=== PATIENT | male | born 1965 | race Caucasian/White ===

== ENCOUNTER 2018-09-02 10:39 | Emergency (ER) | payer OTHER, MEDICAID, SELFPAY ==
[2018-09-02 10:45] VITALS: BP 171/119; PULSE 83; RESP 16; TEMP 36.7; O2SAT 100; BMI 23.0
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
[2018-09-02 11:11] VITALS: PULSE 81
[2018-09-02 12:04] VITALS: BP 160/100; PULSE 57; RESP 19; O2SAT 100
== END 2018-09-02 12:10 | disposition home or self-care (01) ==
PROVIDERS: Emergency Provider Emergency Medicine; Family Provider Family Medicine; PCP Family Medicine
DX: M25.511 Pain in right shoulder (principal)
CPT/HCPCS: 73030; 99282; 99283

== ENCOUNTER → 2018-09-10 05:57 | Outpatient (CLI) | payer OTHER, MEDICAID, SELFPAY ==
--- NOTE | 2018-09-10 | DI.RAD.S_ITS ---
PROCEDURE: XR EYE FOREIGN BODY LT INDICATIONS: MRI SCREENING TECHNIQUE: A single view of the orbits was acquired. COMPARISON: None. FINDINGS: Soft tissues: No metallic foreign bodies are visualized around the orbits. Bones: Bony structures appear unremarkable. Visualized sinuses appear clear. IMPRESSION: No radiopaque foreign body identified Dictated by: Dennis De Luna M.D. on 09/10/2018 at 13:27 Approved by: Dennis De Luna M.D. on 09/10/2018 at 13:27
--- NOTE | 2018-09-10 | DI.MRI.S_ITS ---
PROCEDURE: MR LUMBAR SPINE WO CON INDICATIONS: Intervertebral disc disorders with radiculopathy TECHNIQUE: Noncontrast sagittal T1 spin echo and T2 fast echo, sagittal STIR, axial T1 and T2 fast spin echo through the lumbar spine. In cases with scoliosis, additional coronal T2 fast spin echo may be performed. COMPARISON: [facility], SPINE LUMB MIN 4VW, 05/04/2014, 15:11. [facility], MR, L-SPINE WITHOUT CONTRAST, 12/06/2011, 15:14. [facility], MR, L-SPINE WITHOUT CONTRAST, 05/13/2014, 14:46. FINDINGS: Image quality: Excellent. Alignment and Curvature: There is normal bony alignment. Bone Marrow: Degenerative endplate signal changes are present. There is a large Schmorl's node in the inferior endplate of L4. No acute vertebral body compression fractures. Spinal Cord: Conus medullaris terminates at the T12-L1 level. Visualized cord demonstrates normal signal and size. Paraspinous Soft Tissues: No paravertebral masses. There is a large simple perine right renal cyst. T12-L1: Mild loss of disc height. Moderate disc desiccation. There is mild posterior disc bulge. No central canal or foraminal stenosis. No definitive nerve root impingement. No significant change from the last exam. L1-L2: Mild loss of disc height. Moderate disc desiccation. There is mild posterior disc bulge. No central canal or foraminal stenosis. No definitive nerve root impingement. No significant change from the last exam. L2-L3: Mild loss of disc height. Moderate disc desiccation. There is mild posterior disc bulge. No central canal stenosis. Mild bilateral foraminal stenosis. No definitive nerve root impingement. No significant change from the last exam. L3-L4: Preserved disc height. Moderate disc desiccation. There is mild posterior disc bulge. No central canal stenosis. Mild bilateral foraminal stenosis. No definitive nerve root impingement. No significant change from the last exam. L4-L5: Mild loss of disc height. Moderate disc desiccation. There is diffuse posterior disc bulge. Mild bilateral facet arthropathy. Mild central canal stenosis. Moderate bilateral foraminal stenosis. No definitive nerve root impingement. No significant change from the last exam. L5-S1: Severe loss of disc height. Moderate disc desiccation. There is diffuse posterior disc bulge. Mild bilateral facet arthropathy. Mild central canal stenosis. Moderate left and mild foraminal stenosis. No definitive nerve root impingement. No significant change from the last exam. IMPRESSION: 1. Multilevel degenerative disc disease and facet arthropathy as described. 2. Mild central canal stenosis at L4-L5 and L5-S1. 3. Multilevel foraminal stenosis as described. 4. There is a large simple appearing right renal cyst. Dictated by: Cassy Aguero M.D. on 09/10/2018 at 15:01 Approved by: Cassy Aguero M.D. on 09/11/2018 at 10:09
== END ==
PROVIDERS: Family Provider Family Medicine; PCP Family Medicine; Visit Provider Family Medicine
DX: M51.16 Intervertebral disc disorders with radiculopathy, lumbar region (principal); M51.17 Intervertebral disc disorders with radiculopathy, lumbosacral region; M51.46 Schmorl's nodes, lumbar region; M47.26 Other spondylosis with radiculopathy, lumbar region; M47.27 Other spondylosis with radiculopathy, lumbosacral region; M48.061 Spinal stenosis, lumbar region without neurogenic claudication; M48.07 Spinal stenosis, lumbosacral region; N28.1 Cyst of kidney, acquired; Z13.5 Encounter for screening for eye and ear disorders
CPT/HCPCS: 70030; 72148

== ENCOUNTER 2018-09-16 06:20 | Emergency (ER) | payer OTHER, MEDICAID, SELFPAY ==
[2018-09-16] VITALS (7 sets, daily range): BP systolic 122–160; BP diastolic 67–111; PULSE 69–115; RESP 12–22; TEMP 36.9; O2SAT 99–100; BMI 24.8
--- NOTE | 2018-09-16 06:35 | DI.RAD.S_ITS ---
PROCEDURE: XR CHEST 1V INDICATIONS: Shortness of breath TECHNIQUE: One view of the chest was acquired. COMPARISON: [facility], CHEST 2 VIEW, 02/22/2016, 13:27. [facility], CHEST 1 VIEW, 05/26/2013, 17:59. FINDINGS: Surgical changes and devices: None. Lungs and pleura: Lungs are clear. No pleural effusions or pneumothorax. Mediastinum: Mediastinal contours appear normal. Heart size is normal. Bones and chest wall: No suspicious bony lesions. Overlying soft tissues appear unremarkable. IMPRESSION: Normal for age, source of current shortness of breath symptoms is not seen. Dictated by: Eduard Navarro M.D. on 09/16/2018 at 8:22 Approved by: Eduard Navarro M.D. on 09/16/2018 at 8:28
[2018-09-16 06:53] LABS: Add Manual Diff / Slide Review NO; Basophils Absolute Auto 0 /uL (0-100); Basophils Percent Auto 1.1 % (0-2); Eosinophils Absolute Auto 300 /uL (0-450); Hematocrit 44.7 % (41-53); Hemoglobin 15.4 g/dL (13.5-17.5); Lymphocytes Absolute Auto 1200 /uL (1100-4500); Lymphocytes Percent Auto 27.8 % (25-40); Mean Corpuscular HGB Conc 34.5 % (30-36); Mean Corpuscular Hemoglobin 29.6 PG (26-34); Mean Corpuscular Volume 85.7 fL (80-100); Monocytes Absolute Auto 600 /uL (0-900); Monocytes Percent Auto 13.5 % (3-14); Neutrophils Absolute Auto 2100 /uL (1500-7000); Neutrophils Percent Auto 49.6 % (50-75); Platelet Count 258 X10^3/uL (150-400); Red Blood Cell Count 5.21 X10^6/uL (4.5-5.9); Red Cell Distribution Width 14.4 % (11.6-14.8); White Blood Cell Count 4.3 X10^3/uL (4.5-11.0)
--- NOTE | 2018-09-16 06:55 | ED.SOB ---
HPI - SOB/Dyspnea <DO John Grover Last Filed: 09/16/18 18:44> General Chief Complaint: Shortness of Breath/Dyspnea Stated Complaint: coughing, cant get any air, sweating Time Seen by Provider: 09/16/18 06:27 Source: patient Mode of arrival: ambulatory Limitations: no limitations History of Present Illness 53-year-old male here for evaluation of right upper chest pain and shortness of breath. The symptoms been going on for the past several days. He also states he has had a lot of ?life stressors ?recently. He states that he has had fevers and body aches. No rashes. States he has had pneumonia in the past and it is always on his right upper lungs who is concerned about that. Related Data Home Medications Medication Instructions Recorded Confirmed [ROBITUSSIN] #0 02/22/16 acetaminophen 650 mg PO #0 02/22/16 Previous Rx's Medication Instructions Recorded baclofen 0 PO SEE INSTRUCTIONS PRN #90 tab 01/03/16 ondansetron [Zofran ODT] 4 mg SUBLINGUAL Q6HP PRN #10 odt 02/22/16 tramadol 0 mg PO SEE INSTRUCTIONS PRN #89 07/19/16 tab albuterol sulfate 2 puff INHALATION Q4-6H PRN #6.7 09/16/18 gram prednisone 50 mg PO DAILY #5 tab 09/16/18 Allergies Allergy/AdvReac Type Severity Reaction Status Date / Time No Known Drug Allergies Allergy Verified 09/02/18 10:45 Review of Systems <DO John Grover Last Filed: 09/16/18 18:44> Constitutional Denies fever(s) and Denies headache(s) ENT Ears, Nose, Mouth, and Throat: Denies headache(s) Cardiovascular Reports chest pain and Reports dyspnea Respiratory Reports cough, Reports pain on inspiration and Reports dyspnea Gastrointestinal Gastrointestinal: Denies abdominal pain, Denies nausea and Denies vomiting Genitourinary Denies dysuria Musculoskeletal Denies myalgias and Denies arthralgias Integumentary/Breasts Denies rash Neurologic Denies behavioral changes and Denies headache(s) Psychiatric Denies behavioral changes Hematologic/Lymphatic Denies easy bleeding and Denies easy bruising PFSH <DO John Grover Last Filed: 09/16/18 18:44> Medical History Asthma (Acute) 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) Family History (Updated 09/02/18 @ 11:14 by Susan White DO) Father Diabetes mellitus Social History Smoking Status: Former smoker alcohol intake: current substance use type: former substance user and amphetamines Social History Smoking Status: Former smoker alcohol intake: current substance use type: former substance user and amphetamines Exam <DO John Grover Last Filed: 09/16/18 18:44> Initial Vital Signs Initial Vital Signs: Vital Signs Pulse Rate 69 09/16/18 06:26 Respiratory Rate 22 09/16/18 06:26 Blood Pressure 149/101 H 09/16/18 06:26 Pulse Oximetry 100 09/16/18 06:26 Const General: cooperative, well developed, well groomed and No acute distress Orientation: alert, awake and oriented x3 HENMT Head: normal to inspection and normocephalic Resp Effort & Inspection: normal respiratory effort, not labored and tachypneic Auscultation: wheezes Cardio Rate: regular rate Rhythm: regular rhythm Pulses: radial pulses present GI Inspection: non-distended Palpation: soft, No firm and No tender Skin Lesions: no lesions Rashes: no rashes Neuro General: alert, awake and oriented x3 Cognition: normal cognition Speech: speech normal Gait: normal gait Extrem General: normal to inspection and capillary refill normal Psych Appearance: grossly normal and well kempt <Susan White DO - Last Filed: 09/16/18 18:43> Initial Vital Signs Initial Vital Signs: Vital Signs Pulse Rate 69 09/16/18 06:26 Respiratory Rate 22 09/16/18 06:26 Blood Pressure 149/101 H 09/16/18 06:26 Pulse Oximetry 100 09/16/18 06:26 Course <DO John Grover Last Filed: 09/16/18 18:44> Orders Ordered: Discontinued Medications Albuterol (Ventolin) 2.5 mg INH NOW ONE Stop: 09/16/18 07:58 Last Admin: 09/16/18 08:03 Dose: 2.5 mg Albuterol/Ipratropium (Duoneb) 3 ml INH NOW ONE Stop: 09/16/18 06:35 Last Admin: 09/16/18 07:10 Dose: 3 ml Methylprednisolone (Solu-Medrol 125 Mg Vial) 125 mg IV NOW ONE Stop: 09/16/18 07:58 Last Admin: 09/16/18 08:03 Dose: 125 mg Vital Signs - 8 hr 09/16/18 06:26 09/16/18 06:33 09/16/18 07:00 Temperature 98.4 F Pulse Rate 69 69 100 H Respiratory Rate 22 22 22 Blood Pressure 160/111 H Blood Pressure [Right Arm] 149/101 H 125/79 Pulse Oximetry 100 100 100 09/16/18 07:10 09/16/18 07:30 09/16/18 08:00 Temperature Pulse Rate 73 106 H 77 Respiratory Rate 12 20 18 Blood Pressure Blood Pressure [Right Arm] 136/73 122/67 Pulse Oximetry 99 100 100 09/16/18 08:09 Temperature Pulse Rate 115 H Respiratory Rate 19 Blood Pressure Blood Pressure [Right Arm] 122/70 Pulse Oximetry 100 <Susan White, - Last Filed: 09/16/18 18:43> Orders Ordered: Discontinued Medications Albuterol (Ventolin) 2.5 mg INH NOW ONE Stop: 09/16/18 07:58 Last Admin: 09/16/18 08:03 Dose: 2.5 mg Albuterol/Ipratropium (Duoneb) 3 ml INH NOW ONE Stop: 09/16/18 06:35 Last Admin: 09/16/18 07:10 Dose: 3 ml Methylprednisolone (Solu-Medrol 125 Mg Vial) 125 mg IV NOW ONE Stop: 09/16/18 07:58 Last Admin: 09/16/18 08:03 Dose: 125 mg Vital Signs - 8 hr 09/16/18 06:26 09/16/18 06:33 09/16/18 07:00 Temperature 98.4 F Pulse Rate 69 69 100 H Respiratory Rate 22 22 22 Blood Pressure 160/111 H Blood Pressure [Right Arm] 149/101 H 125/79 Pulse Oximetry 100 100 100 09/16/18 07:10 09/16/18 07:30 09/16/18 08:00 Temperature Pulse Rate 73 106 H 77 Respiratory Rate 12 20 18 Blood Pressure Blood Pressure [Right Arm] 136/73 122/67 Pulse Oximetry 99 100 100 09/16/18 08:09 Temperature Pulse Rate 115 H Respiratory Rate 19 Blood Pressure Blood Pressure [Right Arm] 122/70 Pulse Oximetry 100 MDM - SOB/Dyspnea <German RothDO - Last Filed: 09/16/18 18:44> Lab Data Result diagrams: 09/16/18 06:43 09/16/18 06:43 Lab Results 09/16/18 09/16/18 Range/Units 06:43 06:43 WBC 4.3 L (4.5-11.0) X10^3/uL RBC 5.21 (4.5-5.9) X10^6/uL Hgb 15.4 (13.5-17.5) g/dL Hct 44.7 (41-53) % MCV 85.7 (80-100) fL MCH 29.6 (26-34) PG MCHC 34.5 (30-36) % RDW 14.4 (11.6-14.8) % Plt Count 258 (150-400) X10^3/uL Neut % (Auto) 49.6 L (50-75) % Lymph % (Auto) 27.8 (25-40) % [place] % (Auto) 13.5 (3-14) % Eos % (Auto) 8.0 H (2-4) % Baso % (Auto) 1.1 (0-2) % Neut # (Auto) 2100 (8774-5362) /uL Lymph # (Auto) 1200 (4865-0739) /uL [place] # (Auto) 600 (0-900) /uL Eos # (Auto) 300 (0-450) /uL Baso # (Auto) 0 (0-100) /uL Sodium 143 (137-145) mmol/L Potassium 3.8 (3.4-5.1) mmol/L Chloride 106 (98-107) mmol/L Carbon Dioxide 26 (22-32) mmol/L BUN 17 (9-20) mg/dL Creatinine 1.20 (0.66-1.25) mg/dL Estimated GFR > 60.0 (>60) mL/min BUN/Creatinine Ratio 14.2 (6-22) Glucose 98 (70-100) mg/dL Calcium 9.3 (8.4-10.2) mg/dL Total Bilirubin 0.5 (0.2-1.3) mg/dL AST 35 (17-59) IU/L ALT 23 (21-72) IU/L Alkaline Phosphatase 106 (38-126) U/L Troponin I < 0.012 (0.01-0.034) ng/mL B-Natriuretic Peptide < 100 (<100) Total Protein 8.2 (6.3-8.2) g/dL Albumin 4.6 (3.5-5.0) g/dL Globulin 3.6 (1.7-4.1) g/dL Albumin/Globulin Ratio 1.3 (1.0-2.8) Lipase 49 (23-300) U/L ECG Data Attestation: I personally reviewed and interpreted this ECG as follows: Prior ECG tracings: not available for review Interpretation: Sinus rhythm Ventricular rate 66 side normal axis Normal QRS Normal QTC No ST T wave changes MDM Narrative Medical decision making narrative: Patient has had symptoms for the past several days. Was given a nebulizer treatment for wheezing. Lab test pending. Care turned over today provided follow up on labs and disposition. <Susan White, DO - Last Filed: 09/16/18 18:43> Lab Data Attestation: I reviewed the patient's lab results. Lab Results 09/16/18 09/16/18 Range/Units 06:43 06:43 WBC 4.3 L (4.5-11.0) X10^3/uL RBC 5.21 (4.5-5.9) X10^6/uL Hgb 15.4 (13.5-17.5) g/dL Hct 44.7 (41-53) % MCV 85.7 (80-100) fL MCH 29.6 (26-34) PG MCHC 34.5 (30-36) % RDW 14.4 (11.6-14.8) % Plt Count 258 (150-400) X10^3/uL Neut % (Auto) 49.6 L (50-75) % Lymph % (Auto) 27.8 (25-40) % [place] % (Auto) 13.5 (3-14) % Eos % (Auto) 8.0 H (2-4) % Baso % (Auto) 1.1 (0-2) % Neut # (Auto) 2100 (7827-3789) /uL Lymph # (Auto) 1200 (0654-0116) /uL [place] # (Auto) 600 (0-900) /uL Eos # (Auto) 300 (0-450) /uL Baso # (Auto) 0 (0-100) /uL Sodium 143 (137-145) mmol/L Potassium 3.8 (3.4-5.1) mmol/L Chloride 106 (98-107) mmol/L Carbon Dioxide 26 (22-32) mmol/L BUN 17 (9-20) mg/dL Creatinine 1.20 (0.66-1.25) mg/dL Estimated GFR > 60.0 (>60) mL/min BUN/Creatinine Ratio 14.2 (6-22) Glucose 98 (70-100) mg/dL Calcium 9.3 (8.4-10.2) mg/dL Total Bilirubin 0.5 (0.2-1.3) mg/dL AST 35 (17-59) IU/L ALT 23 (21-72) IU/L Alkaline Phosphatase 106 (38-126) U/L Troponin I < 0.012 (0.01-0.034) ng/mL B-Natriuretic Peptide < 100 (<100) Total Protein 8.2 (6.3-8.2) g/dL Albumin 4.6 (3.5-5.0) g/dL Globulin 3.6 (1.7-4.1) g/dL Albumin/Globulin Ratio 1.3 (1.0-2.8) Lipase 49 (23-300) U/L Imaging Data Chest x-ray: Radiologist's impression: [address] [address] XRay Report Signed Patient: Fredi Dill [facility]#: [id number] : 1965Acct:[id number] Age/Sex: 53 / MDate of Service: 09/16/18 Loc: ED Accession Number: [id number] Procedure: XR chest 1V Ordering Provider: German Roth D.O. PROCEDURE: XR CHEST 1V INDICATIONS: Shortness of breath TECHNIQUE: One view of the chest was acquired. COMPARISON: [facility], , CHEST 2 VIEW, 02/22/2016, 13:27. [facility], CR, CHEST 1 VIEW, 05/26/2013, 17:59. FINDINGS: Surgical changes and devices: None. Lungs and pleura: Lungs are clear. No pleural effusions or pneumothorax. Mediastinum: Mediastinal contours appear normal. Heart size is normal. Bones and chest wall: No suspicious bony lesions. Overlying soft tissues appear unremarkable. IMPRESSION: Normal for age, source of current shortness of breath symptoms is not seen. Dictated by: Eduard Navarro M.D. on 09/16/2018 at 8:22 Approved by: Eduard Navarro M.D. on 09/16/2018 at 8:28 ECG Data Attestation: I personally reviewed and interpreted this ECG as follows: Prior ECG tracings: available for review Interpretation: Sinus rhythm with a rate of 66 P are 178 QRS of 96 QTC of 416, no ST elevation or depression is appreciated. Patient has prior from 05/26/2013 which appears similar. MDM Narrative Medical decision making narrative: Patient on recheck wheezing has resolved. Lungs are clear patient appears in no acute distress. He states he feels much better he did request a 2nd neb, which was given here in the department and he states that was helpful. Patient chest x-ray is negative, lab work shows a slightly low white count but otherwise normal labs. He has had 3 days of chest pain and that is been constant so likelihood of a cardiac event causing his symptoms with a negative troponin and EKG are unlikely. He does have a history of smoking tobacco and quit about 10 years ago, he does continue to smoke marijuana and this likely makes his lungs a little bit more sensitive. Patient is currently on penicillin for a dental infection. He has albuterol in the past but does not know if he still has his inhaler. Discussed with a spacer training as lungs albuterol as he is not familiar with spacers. Plan for a steroid burst dose. He can continue his medications as prescribed as he is not having any other changes that are concerning for an allergic reaction. Patient is comfortable with the plan feels much better and requesting return home. Discharge Plan Departure Patient Disposition: Home Clinical Impression: Bronchitis Discharge Date/Time: 09/16/18 09:14 Interventions: ED Discharge Assessment Last Done: 09/16/18 09:16 Instructions: DI for Acute Bronchitis Activity Restrictions/Additional Instructions: Follow-up with primary care in the next week if your symptoms have not resolved. Continue oral antibiotics as prescribed. Use albuterol 1-2 puffs every 4 hours as needed for wheezing or shortness of breath. Use this with a spacer. Take prednisone once daily until gone. Return to the emergency department for fevers, rapidly worsening symptoms, new chest pain, worsening shortness of breath or difficulty breathing, lightheadedness, passing out, persistent vomiting new or concerning symptoms. Prescriptions: New prednisone 50 mg tablet 50 mg PO DAILY Qty: 5 RF: 0 albuterol sulfate 90 mcg/actuation HFA aerosol inhaler 2 puff INHALATION Q4-6H PRN (Reason: shortness of breath or wheezing) Qty: 6.7 RF: 0 No Action baclofen 10 MG tablet PO SEE INSTRUCTIONS PRNQty: 90 RF: 3 acetaminophen 325 MG tablet 650 mg PO Qty: 0 RF: 0 [ROBITUSSIN] Qty: 0 RF: 0 ondansetron [Zofran ODT] 4 MG tablet,disintegrating 4 mg Sublingual Q6HP PRNQty: 10 RF: 0 tramadol 50 MG tablet PO SEE INSTRUCTIONS PRNQty: 89 RF: 0 Referrals: Aviva Butler [Primary Care Provider] - Stand Alone Forms: Work Release Note
--- NOTE | 2018-09-16 06:58 | ED_ITS ---
HPI - SOB/Dyspnea <DO John Grover Last Filed: 09/16/18 18:44> General Chief Complaint: Shortness of Breath/Dyspnea Stated Complaint: coughing, cant get any air, sweating Time Seen by Provider: 09/16/18 06:27 Source: patient Mode of arrival: ambulatory Limitations: no limitations History of Present Illness 53-year-old male here for evaluation of right upper chest pain and shortness of breath. The symptoms been going on for the past several days. He also states he has had a lot of ?life stressors ?recently. He states that he has had fevers and body aches. No rashes. States he has had pneumonia in the past and it is always on his right upper lungs who is concerned about that. Related Data Home Medications Medication Instructions Recorded Confirmed [ROBITUSSIN] #0 02/22/16 acetaminophen 650 mg PO #0 02/22/16 Previous Rx's Medication Instructions Recorded baclofen 0 PO SEE INSTRUCTIONS PRN #90 tab 01/03/16 ondansetron [Zofran ODT] 4 mg SUBLINGUAL Q6HP PRN #10 odt 02/22/16 tramadol 0 mg PO SEE INSTRUCTIONS PRN #89 07/19/16 tab albuterol sulfate 2 puff INHALATION Q4-6H PRN #6.7 09/16/18 gram prednisone 50 mg PO DAILY #5 tab 09/16/18 Allergies Allergy/AdvReac Type Severity Reaction Status Date / Time No Known Drug Allergies Allergy Verified 09/02/18 10:45 Review of Systems <DO John Grover Last Filed: 09/16/18 18:44> Constitutional Denies fever(s) and Denies headache(s) ENT Ears, Nose, Mouth, and Throat: Denies headache(s) Cardiovascular Reports chest pain and Reports dyspnea Respiratory Reports cough, Reports pain on inspiration and Reports dyspnea Gastrointestinal Gastrointestinal: Denies abdominal pain, Denies nausea and Denies vomiting Genitourinary Denies dysuria Musculoskeletal Denies myalgias and Denies arthralgias Integumentary/Breasts Denies rash Neurologic Denies behavioral changes and Denies headache(s) Psychiatric Denies behavioral changes Hematologic/Lymphatic Denies easy bleeding and Denies easy bruising PFSH <DO John Grover Last Filed: 09/16/18 18:44> Medical History Asthma (Acute) 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) Family History (Updated 09/02/18 @ 11:14 by Susan White DO) Father Diabetes mellitus Social History Smoking Status: Former smoker alcohol intake: current substance use type: former substance user and amphetamines Social History Smoking Status: Former smoker alcohol intake: current substance use type: former substance user and amphetamines Exam <DO John Grover Last Filed: 09/16/18 18:44> Initial Vital Signs Initial Vital Signs: Vital Signs Pulse Rate 69 09/16/18 06:26 Respiratory Rate 22 09/16/18 06:26 Blood Pressure 149/101 H 09/16/18 06:26 Pulse Oximetry 100 09/16/18 06:26 Const General: cooperative, well developed, well groomed and No acute distress Orientation: alert, awake and oriented x3 HENMT Head: normal to inspection and normocephalic Resp Effort & Inspection: normal respiratory effort, not labored and tachypneic Auscultation: wheezes Cardio Rate: regular rate Rhythm: regular rhythm Pulses: radial pulses present GI Inspection: non-distended Palpation: soft, No firm and No tender Skin Lesions: no lesions Rashes: no rashes Neuro General: alert, awake and oriented x3 Cognition: normal cognition Speech: speech normal Gait: normal gait Extrem General: normal to inspection and capillary refill normal Psych Appearance: grossly normal and well kempt <Susan White DO - Last Filed: 09/16/18 18:43> Initial Vital Signs Initial Vital Signs: Vital Signs Pulse Rate 69 09/16/18 06:26 Respiratory Rate 22 09/16/18 06:26 Blood Pressure 149/101 H 09/16/18 06:26 Pulse Oximetry 100 09/16/18 06:26 Course <DO John Grover Last Filed: 09/16/18 18:44> Orders Ordered: Discontinued Medications Albuterol (Ventolin) 2.5 mg INH NOW ONE Stop: 09/16/18 07:58 Last Admin: 09/16/18 08:03 Dose: 2.5 mg Albuterol/Ipratropium (Duoneb) 3 ml INH NOW ONE Stop: 09/16/18 06:35 Last Admin: 09/16/18 07:10 Dose: 3 ml Methylprednisolone (Solu-Medrol 125 Mg Vial) 125 mg IV NOW ONE Stop: 09/16/18 07:58 Last Admin: 09/16/18 08:03 Dose: 125 mg Vital Signs - 8 hr 09/16/18 06:26 09/16/18 06:33 09/16/18 07:00 Temperature 98.4 F Pulse Rate 69 69 100 H Respiratory Rate 22 22 22 Blood Pressure 160/111 H Blood Pressure [Right Arm] 149/101 H 125/79 Pulse Oximetry 100 100 100 09/16/18 07:10 09/16/18 07:30 09/16/18 08:00 Temperature Pulse Rate 73 106 H 77 Respiratory Rate 12 20 18 Blood Pressure Blood Pressure [Right Arm] 136/73 122/67 Pulse Oximetry 99 100 100 09/16/18 08:09 Temperature Pulse Rate 115 H Respiratory Rate 19 Blood Pressure Blood Pressure [Right Arm] 122/70 Pulse Oximetry 100 <Susan White, - Last Filed: 09/16/18 18:43> Orders Ordered: Discontinued Medications Albuterol (Ventolin) 2.5 mg INH NOW ONE Stop: 09/16/18 07:58 Last Admin: 09/16/18 08:03 Dose: 2.5 mg Albuterol/Ipratropium (Duoneb) 3 ml INH NOW ONE Stop: 09/16/18 06:35 Last Admin: 09/16/18 07:10 Dose: 3 ml Methylprednisolone (Solu-Medrol 125 Mg Vial) 125 mg IV NOW ONE Stop: 09/16/18 07:58 Last Admin: 09/16/18 08:03 Dose: 125 mg Vital Signs - 8 hr 09/16/18 06:26 09/16/18 06:33 09/16/18 07:00 Temperature 98.4 F Pulse Rate 69 69 100 H Respiratory Rate 22 22 22 Blood Pressure 160/111 H Blood Pressure [Right Arm] 149/101 H 125/79 Pulse Oximetry 100 100 100 09/16/18 07:10 09/16/18 07:30 09/16/18 08:00 Temperature Pulse Rate 73 106 H 77 Respiratory Rate 12 20 18 Blood Pressure Blood Pressure [Right Arm] 136/73 122/67 Pulse Oximetry 99 100 100 09/16/18 08:09 Temperature Pulse Rate 115 H Respiratory Rate 19 Blood Pressure Blood Pressure [Right Arm] 122/70 Pulse Oximetry 100 MDM - SOB/Dyspnea <German RothDO - Last Filed: 09/16/18 18:44> Lab Data Result diagrams: 09/16/18 06:43 09/16/18 06:43 Lab Results 09/16/18 09/16/18 Range/Units 06:43 06:43 WBC 4.3 L (4.5-11.0) X10^3/uL RBC 5.21 (4.5-5.9) X10^6/uL Hgb 15.4 (13.5-17.5) g/dL Hct 44.7 (41-53) % MCV 85.7 (80-100) fL MCH 29.6 (26-34) PG MCHC 34.5 (30-36) % RDW 14.4 (11.6-14.8) % Plt Count 258 (150-400) X10^3/uL Neut % (Auto) 49.6 L (50-75) % Lymph % (Auto) 27.8 (25-40) % [place] % (Auto) 13.5 (3-14) % Eos % (Auto) 8.0 H (2-4) % Baso % (Auto) 1.1 (0-2) % Neut # (Auto) 2100 (4085-8394) /uL Lymph # (Auto) 1200 (8169-9562) /uL [place] # (Auto) 600 (0-900) /uL Eos # (Auto) 300 (0-450) /uL Baso # (Auto) 0 (0-100) /uL Sodium 143 (137-145) mmol/L Potassium 3.8 (3.4-5.1) mmol/L Chloride 106 (98-107) mmol/L Carbon Dioxide 26 (22-32) mmol/L BUN 17 (9-20) mg/dL Creatinine 1.20 (0.66-1.25) mg/dL Estimated GFR > 60.0 (>60) mL/min BUN/Creatinine Ratio 14.2 (6-22) Glucose 98 (70-100) mg/dL Calcium 9.3 (8.4-10.2) mg/dL Total Bilirubin 0.5 (0.2-1.3) mg/dL AST 35 (17-59) IU/L ALT 23 (21-72) IU/L Alkaline Phosphatase 106 (38-126) U/L Troponin I < 0.012 (0.01-0.034) ng/mL B-Natriuretic Peptide < 100 (<100) Total Protein 8.2 (6.3-8.2) g/dL Albumin 4.6 (3.5-5.0) g/dL Globulin 3.6 (1.7-4.1) g/dL Albumin/Globulin Ratio 1.3 (1.0-2.8) Lipase 49 (23-300) U/L ECG Data Attestation: I personally reviewed and interpreted this ECG as follows: Prior ECG tracings: not available for review Interpretation: Sinus rhythm Ventricular rate 66 side normal axis Normal QRS Normal QTC No ST T wave changes MDM Narrative Medical decision making narrative: Patient has had symptoms for the past several days. Was given a nebulizer treatment for wheezing. Lab test pending. Care turned over today provided follow up on labs and disposition. <Susan White, DO - Last Filed: 09/16/18 18:43> Lab Data Attestation: I reviewed the patient's lab results. Lab Results 09/16/18 09/16/18 Range/Units 06:43 06:43 WBC 4.3 L (4.5-11.0) X10^3/uL RBC 5.21 (4.5-5.9) X10^6/uL Hgb 15.4 (13.5-17.5) g/dL Hct 44.7 (41-53) % MCV 85.7 (80-100) fL MCH 29.6 (26-34) PG MCHC 34.5 (30-36) % RDW 14.4 (11.6-14.8) % Plt Count 258 (150-400) X10^3/uL Neut % (Auto) 49.6 L (50-75) % Lymph % (Auto) 27.8 (25-40) % [place] % (Auto) 13.5 (3-14) % Eos % (Auto) 8.0 H (2-4) % Baso % (Auto) 1.1 (0-2) % Neut # (Auto) 2100 (7485-3708) /uL Lymph # (Auto) 1200 (5651-0040) /uL [place] # (Auto) 600 (0-900) /uL Eos # (Auto) 300 (0-450) /uL Baso # (Auto) 0 (0-100) /uL Sodium 143 (137-145) mmol/L Potassium 3.8 (3.4-5.1) mmol/L Chloride 106 (98-107) mmol/L Carbon Dioxide 26 (22-32) mmol/L BUN 17 (9-20) mg/dL Creatinine 1.20 (0.66-1.25) mg/dL Estimated GFR > 60.0 (>60) mL/min BUN/Creatinine Ratio 14.2 (6-22) Glucose 98 (70-100) mg/dL Calcium 9.3 (8.4-10.2) mg/dL Total Bilirubin 0.5 (0.2-1.3) mg/dL AST 35 (17-59) IU/L ALT 23 (21-72) IU/L Alkaline Phosphatase 106 (38-126) U/L Troponin I < 0.012 (0.01-0.034) ng/mL B-Natriuretic Peptide < 100 (<100) Total Protein 8.2 (6.3-8.2) g/dL Albumin 4.6 (3.5-5.0) g/dL Globulin 3.6 (1.7-4.1) g/dL Albumin/Globulin Ratio 1.3 (1.0-2.8) Lipase 49 (23-300) U/L Imaging Data Chest x-ray: Radiologist's impression: [address] [address] XRay Report Signed Patient: Fredi Dill [facility] [place]#: [id number] : 1965Acct:[id number] Age/Sex: 53 / MDate of Service: 09/16/18 Loc: ED Accession Number: [id number] Procedure: XR chest 1V Ordering Provider: German Roth D.O. PROCEDURE: XR CHEST 1V INDICATIONS: Shortness of breath TECHNIQUE: One view of the chest was acquired. COMPARISON: [facility], , CHEST 2 VIEW, 02/22/2016, 13:27. [facility], CR, CHEST 1 VIEW, 05/26/2013, 17:59. FINDINGS: Surgical changes and devices: None. Lungs and pleura: Lungs are clear. No pleural effusions or pneumothorax. Mediastinum: Mediastinal contours appear normal. Heart size is normal. Bones and chest wall: No suspicious bony lesions. Overlying soft tissues appear unremarkable. IMPRESSION: Normal for age, source of current shortness of breath symptoms is not seen. Dictated by: Eduard Navarro M.D. on 09/16/2018 at 8:22 Approved by: Eduard Navarro M.D. on 09/16/2018 at 8:28 ECG Data Attestation: I personally reviewed and interpreted this ECG as follows: Prior ECG tracings: available for review Interpretation: Sinus rhythm with a rate of 66 P are 178 QRS of 96 QTC of 416, no ST elevation or depression is appreciated. Patient has prior from 05/26/2013 which appears similar. MDM Narrative Medical decision making narrative: Patient on recheck wheezing has resolved. Lungs are clear patient appears in no acute distress. He states he feels much better he did request a 2nd neb, which was given here in the department and he states that was helpful. Patient chest x-ray is negative, lab work shows a slightly low white count but otherwise normal labs. He has had 3 days of chest pain and that is been constant so likelihood of a cardiac event causing his symptoms with a negative troponin and EKG are unlikely. He does have a history of smoking tobacco and quit about 10 years ago, he does continue to smoke marijuana and this likely makes his lungs a little bit more sensitive. Patient is currently on penicillin for a dental infection. He has albuterol in the past but does not know if he still has his inhaler. Discussed with a spacer training as lungs albuterol as he is not familiar with spacers. Plan for a steroid burst dose. He can continue his medications as prescribed as he is not having any other changes that are concerning for an allergic reaction. Patient is comfortable with the plan feels much better and requesting return home. Discharge Plan Departure Patient Disposition: Home Clinical Impression: Bronchitis Discharge Date/Time: 09/16/18 09:14 Interventions: ED Discharge Assessment Last Done: 09/16/18 09:16 Instructions: DI for Acute Bronchitis Activity Restrictions/Additional Instructions: Follow-up with primary care in the next week if your symptoms have not resolved. Continue oral antibiotics as prescribed. Use albuterol 1-2 puffs every 4 hours as needed for wheezing or shortness of breath. Use this with a spacer. Take prednisone once daily until gone. Return to the emergency department for fevers, rapidly worsening symptoms, new chest pain, worsening shortness of breath or difficulty breathing, lightheadedness, passing out, persistent vomiting new or concerning symptoms. Prescriptions: New prednisone 50 mg tablet 50 mg PO DAILY Qty: 5 RF: 0 albuterol sulfate 90 mcg/actuation HFA aerosol inhaler 2 puff INHALATION Q4-6H PRN (Reason: shortness of breath or wheezing) Qty: 6.7 RF: 0 No Action baclofen 10 MG tablet PO SEE INSTRUCTIONS PRNQty: 90 RF: 3 acetaminophen 325 MG tablet 650 mg PO Qty: 0 RF: 0 [ROBITUSSIN] Qty: 0 RF: 0 ondansetron [Zofran ODT] 4 MG tablet,disintegrating 4 mg Sublingual Q6HP PRNQty: 10 RF: 0 tramadol 50 MG tablet PO SEE INSTRUCTIONS PRNQty: 89 RF: 0 Referrals: Aviva Butler [Primary Care Provider] - Stand Alone Forms: Work Release Note
[2018-09-16 07:00] LABS: Alanine Aminotransferase 23 IU/L (21-72); Albumin 4.6 g/dL (3.5-5.0); Albumin Globulin Ratio 1.3 (1.0-2.8); Alkaline Phosphatase 106 U/L (38-126); Aspartate Aminotransferase 35 IU/L (17-59); BUN Creatinine Ratio 14.2 (6-22); Bilirubin Total 0.5 mg/dL (0.2-1.3); Blood Urea Nitrogen 17 mg/dL (9-20); Calcium 9.3 mg/dL (8.4-10.2); Carbon Dioxide 26 mmol/L (22-32); Chloride 106 mmol/L (98-107); Estimated Glomerular Filt Rate > 60.0 mL/min (>60); Globulin 3.6 g/dL (1.7-4.1); Glucose 98 mg/dL (70-100); HEMOLYSIS < 15 (0-50); Lipase 49 U/L (23-300); Potassium 3.8 mmol/L (3.4-5.1); Sodium 143 mmol/L (137-145); Total Protein 8.2 g/dL (6.3-8.2)
[2018-09-16] MEDS: ALBUTEROL/IPRATROPIUM 3 ML AMPUL INH (07:10)
[2018-09-16 07:12] LABS: Troponin I < 0.012 ng/mL (0.01-0.034)
[2018-09-16 07:19] LABS: B Type Natriuretic Peptide < 100 (<100)
[2018-09-16] MEDS: ALBUTEROL 2.5 MG/3 ML NEB (ADULT) INH (08:03)
[2018-09-16] MEDS: methylPREDNISolone 125 MG/2 ML VIAL IV (08:03)
--- NOTE | 2018-09-16 08:51 | PC.NURSE ---
Pre tx peak flow: 200. Post rx peak flow: 250
== END 2018-09-16 09:14 | disposition home or self-care (01) ==
PROVIDERS: Emergency Medicine; Emergency Provider Emergency Medicine; Family Provider Family Medicine; PCP Family Medicine
DX: J40 Bronchitis, not specified as acute or chronic (principal); R07.9 Chest pain, unspecified
CPT/HCPCS: 36591; 71045; 80053; 83690; 83880; 84484; 85025; 93005; 94150; 94640; 96374; 99283; 99285; J2930; J7613

== ENCOUNTER 2018-10-10 09:00 | Outpatient (RCR) | payer OTHER, MEDICAID, SELFPAY ==
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
--- NOTE | 2018-10-07 09:32 | PT-OP ANOTE ---
Pt did not show.
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
--- NOTE | 2018-10-17 11:54 | PT-OP ANOTE ---
DNS for PT appointment today.
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
== END 2018-10-11 12:33 ==
LOC: PHYS 09:00
PROVIDERS: Family Provider Family Medicine; PCP Family Medicine; Visit Provider Family Medicine
DX: M54.12 Radiculopathy, cervical region (principal); R29.3 Abnormal posture; R53.1 Weakness
CPT/HCPCS: 97010; 97110; 97140; 97162

== ENCOUNTER → 2021-02-11 07:22 | Outpatient (CLI) | payer OTHER, MEDICAID, SELFPAY ==
[2021-02-11 08:02] LABS: COVID19 -Nasal RAPID Negative (Negative)
== END ==
PROVIDERS: Family Provider Family Medicine; PCP Family Medicine; Visit Provider Nurse Practitioner Family
DX: Z20.822 Contact with and (suspected) exposure to COVID-19 (principal)
CPT/HCPCS: 87635

== ENCOUNTER → 2021-02-11 07:41 | Outpatient (CLI) | payer OTHER, MEDICAID, SELFPAY ==
--- NOTE | 2021-02-11 07:43 | DI.RAD.S_ITS ---
PROCEDURE: XR CHEST 2V INDICATIONS: cough TECHNIQUE: 2 views of the chest were acquired. COMPARISON: None. FINDINGS: Surgical changes and devices: None. Lungs and pleura: Lungs are clear. No pleural effusions or pneumothorax. Mediastinum: Mediastinal contours are normal. Heart size is normal. Bones and chest wall: No suspicious bony abnormalities. Soft tissues appear unremarkable. IMPRESSION: No acute cardiopulmonary disease. Dictated by: Cassy Aguero M.D. on 02/11/2021 at 7:58 Approved by: Cassy Aguero M.D. on 02/11/2021 at 7:58
== END ==
PROVIDERS: Family Provider Family Medicine; PCP Family Medicine; Referring Provider Nurse Practitioner Family; Visit Provider Nurse Practitioner Family
DX: R05.9 Cough, unspecified (principal); Z20.822 Contact with and (suspected) exposure to COVID-19
CPT/HCPCS: 71046; 87635

== ENCOUNTER → 2021-10-19 18:12 | Outpatient (CLI) | payer OTHER, MEDICAID, SELFPAY | PROVIDERS: Family Provider Family Medicine; PCP Family Medicine; Visit Provider Nurse Practitioner Family | DX: L03.90 Cellulitis, unspecified (principal) | CPT/HCPCS: 87070; 87075; 87077; 87147; 87186; 87205 ==